=== PATIENT | female | born 1985 | race African-American/Black ===

== ENCOUNTER → 2017-06-19 | Outpatient (CLI) | payer OTHER | END | disposition home or self-care (01) | LOC: US 10:45 | DX: Z34.92 Encounter for supervision of normal pregnancy, unspecified, second trimester (principal); Z3A.23 23 weeks gestation of pregnancy | CPT/HCPCS: 76805 ==

== ENCOUNTER → 2018-11-25 | Outpatient (CLI) | payer OTHER ==
[2017-10-05 18:00] VITALS: BP 135/78
[~2018-11-25] MED LIST: ACET-704 PO; IBUP-1060 PO; LABE100T5 PO; PNV1TABL25 PO
--- NOTE | 2018-11-25 09:36 | KCIC ---
Indication:Right flank pain. TECHNIQUE: Grayscale, color Doppler and spectral waveform is of the abdomen obtained. COMPARISON:None FINDINGS: Visualized pancreas within normal limits. Pancreatic tail not visualized due to overlying bowel gas. IVC is within normal limits. No aortic aneurysm. Main portal vein is patent with hepatopedal flow. Liver measures 16 cm in longest dimension and is normal in size and echogenicity. No gallstones, pericholecystic fluid or gallbladder wall thickening. CBD measures 3 mm in diameter and is within normal limits. Right kidney measures 11 cm in length without hydronephrosis. IMPRESSION: No cholelithiasis or sonographic evidence of acute cholecystitis. Electronically signed by: Armin Cook DO (11/25/2018 9:33 AM) [facility]
== END | disposition home or self-care (01) ==
LOC: KCIC US 07:43
PROVIDERS: ATTEND Family Medicine
DX: R10.9 Unspecified abdominal pain (principal)
CPT/HCPCS: 76705

== ENCOUNTER 2019-05-11 17:20 | Emergency (ER) | payer MEDICAID, OTHER ==
[2017-10-05 18:00] VITALS: BP 135/78
[2019-05-11 19:42] LABS: BILIRUBIN,URINE NEGATIVE (NEG); CLARITY,URINE CLEAR; COLOR,URINE RED; NITRITE,URINE NEGATIVE (NEG); PH,URINE 5.5; PROTEIN,URINE 30 mg/dL (NEG-TRACE)
[2019-05-11 19:48] LABS: U PREG PATIENT NEGATIVE (NEG)
[2019-05-11 19:53] LABS: BACTERIA,URINE FEW /HPF (0-FEW); RBC,URINE TNTC /HPF (0-2); SQUAMOUS EPITHELIAL CELL,UR FEW /LPF
== END 2019-05-11 19:53 | disposition left against medical advice (07) ==
LOC: ER 17:20
DX: R10.9 Unspecified abdominal pain (principal); Z53.21 Procedure and treatment not carried out due to patient leaving prior to being seen by health care provider
CPT/HCPCS: 81001; 81025; 87086; 99281

== ENCOUNTER → 2020-10-03 | Outpatient (CLI) | payer MEDICAID ==
[2017-10-05 18:00] VITALS: BP 135/78
--- NOTE | 2020-10-03 14:49 | RAD ---
EXAM: Left foot, 3 views. HISTORY: Injury. COMPARISON: None. FINDINGS: 3 views of the left foot are obtained. There are small ossicles along the dorsal aspect of the navicular bone in the lateral projection. The imaging appearance favors an avulsion fracture frag ments of uncertain chronicity. Correlate for pain in this location. There is a tiny plantar spur. IMPRESSION: Suspected small avulsion fracture fragments along the dorsal aspect of the navicular bon e. These are of uncertain chronicity. Correlate for pain in this location. Electronically signed by: Cha Jolley MD (10/03/2020 2:47 PM) [id number]
== END ==
LOC: RAD 13:10
PROVIDERS: ATTEND Family Medicine
DX: S99.922A Unspecified injury of left foot, initial encounter (principal); M77.52 Other enthesopathy of left foot and ankle; X58.XXXA Exposure to other specified factors, initial encounter; Y93.89 Activity, other specified; Y92.89 Other specified places as the place of occurrence of the external cause; Y99.8 Other external cause status
CPT/HCPCS: 73630

== ENCOUNTER → 2021-09-15 | Outpatient (CLI) | payer MEDICAID ==
[2017-10-05 18:00] VITALS: BP 135/78
[~2021-09-15] MED LIST changes: +HYDR-2761 PO
== END ==
LOC: SURG 10:02
PROVIDERS: ATTEND Surgery
DX: Z01.812 Encounter for preprocedural laboratory examination (principal); Z20.822 Contact with and (suspected) exposure to COVID-19
CPT/HCPCS: U0003

== ENCOUNTER 2021-09-18 09:12 | Day surgery (SDC) | payer MEDICAID ==
[~2021-09-18] VITALS: Ht 152.4 cm; Wt 81.0 kg
[~2021-09-18 09:12] MED LIST changes: -HYDR-2761 PO; +HYDROmorphone 2 MG/ML INJ. IVP PRN; +IV RINGERS,LACTATED 1000ML 1,000 ML IV SCH; +MORPHINE SULFATE 2 MG/ML INJ. IVP PRN; +PROCHLORPERAZINE 10 MG/2 ML VIAL. IVP PRN; +fentaNYL PF VIAL 100 MCG/2 ML VIAL IVP PRN
[2021-09-18 09:39] VITALS: BP 136/74
[2021-09-18] MEDS ORDERED: LIDOCAINE 1%/EPI 1:100,000 20 ML VIAL. ONE (11:14)
[2021-09-18] MEDS ORDERED: fentaNYL PF VIAL 100 MCG/2 ML VIAL ONE ×2 (11:20→12:44)
[2021-09-18] MEDS ORDERED: PROPOFOL 10 MG/ML (20ML) VIAL. IV ONE (11:41)
[2021-09-18] MEDS ORDERED: DEXAMETHASONE SOD PHOS 4 MG/ML VIAL ONE (11:41)
[2021-09-18] MEDS ORDERED: ONDANSETRON PF 4 MG/2 ML VIAL. ONE (11:41)
[2021-09-18] MEDS ORDERED: LIDOCAINE 2% PF 5 ML VIAL. ONE (11:41)
--- NOTE | 2021-09-18 12:27 | PDOC4 ---
Operative Note Operative Note Operative Note: Preoperative Diagnosis: Neck mass Postoperative Diagnosis: Same Procedure: Excision of neck mass, 3.5 X 2.5 cm, subcutaneous, no margins Surgeon: Jerson Fly Worker: Taylor Oliveira MS 3 Anesthesia: General EBL: 5 mL Specimen: Neck mass to pathology Drains: None Complications: None Indication: The patient is a 36-year-old female who was referred due to a symptomatic left posterior neck mass. She requests excision. The risks of surgery were discussed which include bleeding, infection, recurrence, pain, anesthetic risk, potential need for additional surgery procedure. She understands and would like to proceed. Description: The patient was taken the operating room and placed supine on the operating table. General anesthesia was performed. The left neck was prepped with Betadine and draped in a standard surgical manner. An incision was made overlying the mass. Cautery dissection was carried through the subcutaneous tissues. The mass was identified and was comprised of lobulated adipose tissue consistent with a lipoma. The mass was mobilized from the surrounding tissues and fully excised. The mass measured 3.5 x 2.5 cm and no margins were taken. The mass was sent to pathology for evaluation. Hemostasis was achieved with cautery. The subcutaneous tissue was approximated with 3-0 Vicryl. Skin was closed with 4-0 Monocryl and infiltrated with half percent Marcaine with epinephrine. A Steri-Strip and sterile dressing were applied. The patient tolerated the procedure well and was sent to the recovery room in stable condition. At the end of the case all counts were correct. MICHELLE CHAO MD September 18, 2021 12:27
[2021-09-18] MEDS ORDERED: HYDR-2761 PO (12:28)
--- NOTE | 2021-09-18 12:30 | DISCH ---
DISCHARGE INSTRUCTIONS Condition on Discharge Condition on Discharge: Unstable Activity After Discharge Activity Instructions for Disc: Activity as tolerated Driving Instructions after Dis: Other, see below (No driving while taking pain meds) Diet after Discharge Diet after Discharge: Regular Wound Incision Care Wound/Incision Care: No wound care needed, Other, see below (Keep dressing clean and dry X 72 hours, may then remove and shower) Checks after Discharge Checks after discharge: Check your Temp as needed Follow-Up Follow up with: Dr Chao in 2 weeks in office, call for appt [phone] MICHELLE CHAO MD September 18, 2021 12:30
[2021-09-18] MEDS ORDERED: HYDROcodone/APAP 5/325MG 1 TAB TABLET PO ONE (13:00)
[2021-09-18 13:20] VITALS: BP 133/66
--- NOTE | 2021-09-20 17:30 | PATHOLOGY ---
[facility] Accession Number: [id number] . 01 Material submitted: . neck - NECK MASS . 01 Clinician provided ICD-10: [id number] . 01 Clinical history: . NECK MASS EXCISION . 02 Diagnosis: Fibroadipose tissue, neck mass excision: - Lipoma. LBQ 09/20/2021 1538 Local . 02 Comment: There is no evidence of malignancy. (JPM/db; 09/20/2021) . 02 Electronically signed: . Benjie Vera MD, Pathologist NPI- [id number] . 01 Gross description: . The specimen is received in formalin, labeled "Nussein, [place], neck mass" and consists of a previously disrupted, friable, fatty irregular tissue (3.1 x 3.1 x 1.6 cm). Sectioning reveals pale yellow, lobular, glistening and fatty cut surfaces. Balance Truer sections are submitted in 2 cassettes. (OUZINKIE; 09/19/2021) DKA/DKA 09/19/2021 1056 Local . 02 Pathologist provided ICD-10: D17.0 . 02 CPT . 531892 Specimen Comment: A courtesy copy of this report has been sent to [phone], [phone] Specimen Comment: [id number] Specimen Comment: Report sent to / DR SALCEDO Performed at: 01 [facility] [address], [place] [id number] MD Yvon Gu MD Phone: [phone] Performed at: 02 [facility] [address] [place], [place] [id number] MD Benjie Vera MD Phone: [phone]
== END 2021-09-18 13:54 | disposition home or self-care (01) ==
LOC: SURG 09:12
PROVIDERS: ATTEND Surgery
DX: R22.1 Localized swelling, mass and lump, neck (principal); D17.0 Benign lipomatous neoplasm of skin and subcutaneous tissue of head, face and neck; Z79.899 Other long term (current) drug therapy; Z98.890 Other specified postprocedural states
CPT/HCPCS: 21552; 81025; 88304; A4364; A4930; A6219; A6402; J0690; J1100; J2405; J2704; J3010; J3490; A4452; A4657